=== PATIENT | male | born 1970 | race Caucasian/White ===

== ENCOUNTER 2021-11-19 09:36 | Outpatient (CLI) | payer OTHER | END 2021-11-19 09:37 | disposition home or self-care (01) | LOC: NM 09:36 | PROVIDERS: ATTEND Psychiatry & Neurology Neurology | DX: G20 Parkinson's disease (principal) | CPT/HCPCS: 78803; A9584 ==

== ENCOUNTER 2023-10-20 08:22 | Outpatient (CLI) | payer OTHER | END 2023-10-20 08:23 | disposition home or self-care (01) | LOC: NM 08:22 | PROVIDERS: ATTEND Psychiatry & Neurology Neurology | DX: R25.9 Unspecified abnormal involuntary movements (principal) | CPT/HCPCS: 78803; A9584 ==